=== PATIENT | male | born 1930 | race Caucasian/White ===

== ENCOUNTER 2018-05-12 14:56 | Outpatient (CLI) | payer MEDICARE, OTHER ==
--- NOTE | 2018-05-12 18:39 | Diagnostic Imaging Report ---
[facility] [address] [facility] [address] [place] [address]. [address] Report Submission Date: May 12, 2018 3:50:53 PM CDT Patient Study Name: LYUDMILA MARTINEZ Date: May 12, 2018 3:11:15 PM CDT Modality Type: CT\SR Gender: M Description: CT LEG W/O CONTRAST : 01/30/30 Institution: Physician: [facility] Computed tomography right hip without contrast History: Pain and decreased mobility Findings: Transverse right hip sections are obtained without contrast. Radiographs have not been provided. A large amount of rectosigmoid stool is noted. Surgical clips are present in the right groin. Osteopenia is observed. The right hip is otherwise normal without fracture, dislocation, arthropathy, or suspicious bone lesion. Impression: 1. Possible fecal impaction. 2. Osteopenia. 3. No evidence of fracture. Electronically signed on May 12, 2018 3:50:53 PM CDT by: Maximo COATES
== END 2018-05-12 15:02 ==
LOC: RAD 14:56
PROVIDERS: ATTEND Family Medicine
DX: M25.551 Pain in right hip (principal); W19.XXXA Unspecified fall, initial encounter; Y92.9 Unspecified place or not applicable; Y93.9 Activity, unspecified; Y99.9 Unspecified external cause status
CPT/HCPCS: 73700

== ENCOUNTER 2018-07-14 15:00 | Inpatient (IN) | payer MEDICARE, OTHER ==
--- NOTE | 2018-07-14 15:25 | ED Physician Documentation ---
General Adult - HISTORIAN Historian: patient - HPI Stated Complaint: change in LOC Chief Complaint: Altered Mental Status Onset: days ago (2) Timing: still present Severity: mild Further Comments: yes (per Skilled Nursing staff he has had change in his mental status and he was known to have a high white count yesterday no output in voiding today . No fever. Per staff he is usually awake and alert and has been sleeping more not eating and no drinking) - ROS CONST: recent illness (elevated WBC ) EYES/ENT: none CVS/RESP: none (no complaints noted ) MS/SKIN/LYMPH: denies: leg swelling, rash, swollen glands NEURO/PSYCH: denies: fainting, dizziness, difficulty walking - PAST HX Past History: hypertension (depression, dementia, aggression, ostopenia ), other Surgeries/Procedures: cardiac bypass Immunizations: referred to PCP Allergies/Adverse Reactions: Allergies Allergy/AdvReac Type Severity Reaction Status Date / Time iodine Allergy Verified 07/14/18 22:17 morphine Allergy Verified 07/14/18 22:17 Home Medications: Ambulatory Orders Medication Instructions Recorded Acetaminophen [Tylenol Arthritis] 1 tab PO TID 07/14/18 Aspirin [Jose] 1 tab PO DAILY 07/14/18 Cyproheptadine HCl [Periactin] 4 mg PO TID 07/14/18 Divalproex Sodium [Depakote] 2 tab PO BID 07/14/18 Docusate Sodium [Dulcolax Stool 1 tab PO BID 07/14/18 Softener] Donepezil HCl [Aricept] 1 tab PO DAILY 07/14/18 Furosemide [Lasix] 3 tab PO DAILY 07/14/18 Losartan Potassium [Cozaar] 12.5 mg PO DAILY 07/14/18 Medroxyprogesterone Acetate 1 tab PO DAILY 07/14/18 [Provera] Meloxicam 1 mg PO DAILY 07/14/18 Metoprolol Succinate [Toprol Xl] 12.5 mg PO DAILY 07/14/18 Mirtazapine [Remeron] 1 tab PO HS 07/14/18 Pantoprazole Sodium [Protonix] 1 tab PO DAILY 07/14/18 Polyethylene Glycol 3350 [Miralax] 1 packet PO DAILY 07/14/18 Risperidone [Risperdal] 1 tab PO TID 07/14/18 - SOCIAL HX Smoking History: non-smoker Alcohol Use: none Drug Use: none - FAMILY HX Family History: No - REVIEWED ASSESSMENTS Nursing Assessment Reviewed: Yes Vitals Reviewed: Yes Progress - Progress Progress: 1700: resting quietly in bed. Awaiting lab results DG 1730: Discussed case with Dr Ramirez will admit due to hypoxia, altered LOC, decreased urinary output and elevated WBC DG 1940: he asked for a blanket. States he knows he is at the hospital (not sure where) he states he has no pain. His lips are pink and dry. DG 2030: CT returned and case discussed with Dr Ramirez again. Will admit with blood transfusion x 1 unit for tonight DG ED Results Lab/Radiology - Radiology Radiology Impressions: Examination: CT head without contrast History: MENTAL STATUS CHANGES. PT UNABLE TO FOLLOW BREATHING INSTRUCTIONS (Hx) Comparison exam: None available Technique: Noncontrast head CT protocol. Findings: Ventricles and sulci are prominent. Cerebrocerebellar parenchyma demonstrates periventricular low attenuation consistent with small vessel disease. No evidence for parenchymal hemorrhage. No evidence for mass or mass effect. No midline shift. No extra axial fluid collections. Partial visualization of the paranasal sinuses, mastoid air cells, orbits, skull and scalp without gross irregularity. Streak artifact from dental hardware. Impression: Advanced age related changes. No acute parenchymal process. No he morrhage. Electronically signed on Jul 14, 2018 4:02:10 PM CDT by: Chang Davis Portable chest Clinical history: Elevated white cell count. Mental status changes. Findings: Examination of the chest in single portable AP view demonstrates the lungs to be hypoventilated with elevation left hemidiaphragm. There are discoid changes in the bases. Cardiac silhouette is prominent and the aorta is atherosclerotic. There are multiple sternotomy wires. Impression: 1. Hypoventilation and elevation of left hemidiaphragm. 2. Bibasilar atelectasis. 3. Aortic atherosclerosis and left ventricular prominence. 4. Postoperative chest. Electronically signed on Jul 14, 2018 4:19:33 PM CDT by: Edy Goode General Adult Physical Exam - PHYSICAL EXAM GENERAL APPEARANCE: no distress EENT: eye inspection normal, ENT inspection normal, MARIBELL NECK: normal inspection RESPIRATORY: no resp distress, chest non-tender, breath sounds normal CVS: reg rate & rhythm, heart sounds normal, equal pulses ABDOMEN: soft, normal bowel sounds, no distension, non-tender SKIN: warm/dry, normal color EXTREMITIES: non-tender, normal range of motion, no evidence of injury, no edema NEURO: other (he responds to questions but not appropriate ) Discharge Clincal Impression: Altered level of consciousness, Hypoxia Condition: Fair Disposition: ADMITTED INPATIENT Decision to Admit: [id number] Date of Decison to Admit: 07/14/18 Decision Time: 17:30
[2018-07-14] MEDS ORDERED: 0.9 % SODIUM CHLORIDE 1,000 ML IV ONE ×3 (15:26→18:55)
[2018-07-14 15:49] LABS: eGFR (Non-African) > 60
[2018-07-14 18:31] LABS: BASO % 0.4 % (0.0-1.5); EOS % 0.8 % (0.0-6.8); LYMPH ABS # 2.05 thou/uL (0.60-4.00); MCH. 29.3 pg (28.0-34.0); MCV 91.4 fL (80.0-100.0); MONOCYTE % 8.4 % (0.0-11.0); MONOCYTE ABS # 1.15 thou/uL (0.00-0.90); PLATELET COUNT 438 thou/uL (130-400)
--- NOTE | 2018-07-14 19:54 | Diagnostic Imaging Report ---
TENZIN HSIEH [facility] [address] [facility] [address] [place], [place]. [address] Report Submission Date: Jul 14, 2018 4:19:33 PM CDT Patient Study Name: LYUDMILA MARTINEZ Date: Jul 14, 2018 3:41:07 PM CDT Modality Type: DX Gender: M Description: CHEST : 01/30/30 Institution: [facility] Physician: TENZIN HSIEH Portable chest Clinical history: Elevated white cell count. Mental status changes. Findings: Examination of the chest in single portable AP view demonstrates the lungs to be hypoventilated with elevation left hemidiaphragm. There are discoid changes in the bases. Cardiac silhouette is prominent and the aorta is atherosclerotic. There are multiple sternotomy wires. Impression: 1. Hypoventilation and elevation of left hemidiaphragm. 2. Bibasilar atelectasis. 3. Aortic atherosclerosis and left ventricular prominence. 4. Postoperative chest. Electronically signed on Jul 14, 2018 4:19:33 PM CDT by: Edy COATES
--- NOTE | 2018-07-14 19:55 | Diagnostic Imaging Report ---
TENZIN HSIEH [facility] [address] [facility] [address] [place], [place]. [address] Report Submission Date: Jul 14, 2018 4:02:10 PM CDT Patient Study Name: LYUDMILA MARTINEZ Date: Jul 14, 2018 3:39:10 PM CDT Modality Type: CT Gender: M Description: CT BRAIN W/O CONTRAST : 01/30/30 Institution: [facility] Physician: TENZIN HSIEH Examination: CT head without contrast History: MENTAL STATUS CHANGES. PT UNABLE TO FOLLOW BREATHING INSTRUCTIONS (Hx) Comparison exam: None available Technique: Noncontrast head CT protocol. Findings: Ventricles and sulci are prominent. Cerebrocerebellar parenchyma demonstrates periventricular low attenuation consistent with small vessel disease. No evidence for parenchymal hemorrhage. No evidence for mass or mass effect. No midline shift. No extra axial fluid collections. Partial visualization of the paranasal sinuses, mastoid air cells, orbits, skull and scalp without gross irregularity. Streak artifact from dental hardware. Impression: Advanced age related changes. No acute parenchymal process. No hemorrhage. Electronically signed on Jul 14, 2018 4:02:10 PM CDT by: Chang COATES
--- NOTE | 2018-07-14 20:08 | Diagnostic Imaging Report ---
TENZIN HSIEH [facility] [address] [facility] [address] [place], [place]. [address] Report Submission Date: Jul 14, 2018 8:06:42 PM CDT Patient Study Name: LYUDMILA MARTINEZ Date: Jul 14, 2018 7:15:00 PM CDT Modality Type: CT Gender: M Description: CT CHEST/ABD/PEL : 01/30/30 Institution: [facility] Physician: TENZIN HSIEH CT of the chest angiography with IV contrast CT abdomen and pelvis with IV contrast Clinical history: Chest pain and anemia and low blood count No visible aortic dissection. No visible pulmonary embolus. Bibasilar atelectasis. No pneumothorax or significant effusion. Elevated left hemidiaphragm with a possible left diaphragmatic hernia. An old compression fracture of T12. Post cardiac surgery. Normal pancreas and adrenal glands. Multiple low density lesions in the liver. Multiple renal cysts. Heavily calcified abdominal aorta without significant size aneurysm. 3 mm stone in lower pole the right kidney without hydronephrosis. No visible retroperitoneal or abdominal hematomas. No free fluid in the abdomen or pelvis. Fecal impaction of the rectum with Pelayo catheter is in the bladder. Impression: No visible aortic dissection or pulmonary embolus Bibasilar atelectasis but significant effusion Left diaphragmatic hernia Multiple hepatic and renal cysts 3 mm nonobstructing stone right kidney Fecal impaction of the rectum No visible hematoma in the abdomen or pelvis An old compression fracture of T12 Electronically signed on Jul 14, 2018 8:06:42 PM CDT by: Charly COATES
--- NOTE | 2018-07-14 20:08 | Diagnostic Imaging Report ---
TENZIN HSIEH [facility] [address] [facility] [address] [place], [place]. [address] Report Submission Date: Jul 14, 2018 8:06:42 PM CDT Patient Study Name: LYUDMILA MARTINEZ Date: Jul 14, 2018 7:15:00 PM CDT Modality Type: CT Gender: M Description: CT CHEST/ABD/PEL : 01/30/30 Institution: [facility] Physician: TENZIN HSIEH CT of the chest angiography with IV contrast CT abdomen and pelvis with IV contrast Clinical history: Chest pain and anemia and low blood count No visible aortic dissection. No visible pulmonary embolus. Bibasilar atelectasis. No pneumothorax or significant effusion. Elevated left hemidiaphragm with a possible left diaphragmatic hernia. An old compression fracture of T12. Post cardiac surgery. Normal pancreas and adrenal glands. Multiple low density lesions in the liver. Multiple renal cysts. Heavily calcified abdominal aorta without significant size aneurysm. 3 mm stone in lower pole the right kidney without hydronephrosis. No visible retroperitoneal or abdominal hematomas. No free fluid in the abdomen or pelvis. Fecal impaction of the rectum with Pelayo catheter is in the bladder. Impression: No visible aortic dissection or pulmonary embolus Bibasilar atelectasis but significant effusion Left diaphragmatic hernia Multiple hepatic and renal cysts 3 mm nonobstructing stone right kidney Fecal impaction of the rectum No visible hematoma in the abdomen or pelvis An old compression fracture of T12 Electronically signed on Jul 14, 2018 8:06:42 PM CDT by: Charly COATES
[2018-07-14] MEDS ORDERED: cefTRIAXone SODIUM 1 GM VIAL ONE (20:42)
[2018-07-14] MEDS ORDERED: MAGNESIUM CITRATE 296 ML BOTTLE PO ONE (20:47)
[2018-07-14] MEDS ORDERED: ENOXAPARIN SODIUM 40 MG/0.4 ML DISP.SYRIN SQ SCH (21:00)
[2018-07-14] MEDS ORDERED: cefTRIAXone SODIUM 1 GM in 0.9 % SODIUM CHLORIDE 50 ML IV SCH ×4 (21:00)
[2018-07-14] MEDS: DONEPEZIL HCL 5 MG TABLET PO SCH (21:40)
[2018-07-14] MEDS: VALPROIC ACID (AS SODIUM SALT) 250 MG/5 ML BOTTLE PO SCH (21:40)
[2018-07-14] MEDS: 0.9 % SODIUM CHLORIDE 1,000 ML IV SCH (21:41)
[2018-07-14] MEDS: risperiDONE 0.5 MG TABLET PO SCH (21:45)
[2018-07-14 23:23] VITALS: BMI 23.0
[2018-07-15] MEDS ORDERED: 0.9 % SODIUM CHLORIDE 100 ML IV ONE (01:42)
[2018-07-15 04:26] LABS: APPEARANCE,URINE CLEAR (CLEAR); COLOR,URINE AMBER (YELLOW); OCCULT BLOOD,URINE NEGATIVE (NEGATIVE)
[2018-07-15] MEDS: PANTOPRAZOLE SODIUM 40 MG TABLET PO SCH (06:03)
[2018-07-15 08:07] LABS: eGFR (Non-African) > 60
[2018-07-15] MEDS: 0.9 % SODIUM CHLORIDE 1,000 ML IV SCH ×4 (08:21→19:37)
[2018-07-15] MEDS ORDERED: METOPROLOL SUCCINATE 50 MG TAB.ER.24H PO SCH (09:00)
[2018-07-15] MEDS: LOSARTAN POTASSIUM 50 MG TABLET PO SCH (09:04)
[2018-07-15] MEDS: VALPROIC ACID (AS SODIUM SALT) 250 MG/5 ML BOTTLE PO SCH (09:05)
[2018-07-15] MEDS: risperiDONE 0.5 MG TABLET PO SCH ×3 (09:06→17:58)
--- NOTE | 2018-07-15 09:10 | History and Physical Report ---
History of Present Illnes - History of Present Illness Reason for Visit: increase mentla status changes History of Present Illness: Patient is and 88-year-old white male who is a resident of [facility]. Patient has a history of dementia which makes getting a history difficult. Nursing staff at [facility] report that the patient has been more confused than his baseline dementia and less active.Patient has lab work drawn on the day prior to admission was noted have an elevated WBC count. Patient was felt to possibly have a pulmonary infection and was started on something 250 mg BID for seven days. However patient mental status continue to the. Patient was transferred to the ED for further evaluation and treatment. In the ED patient did have a CT scan of the head which did show age-related changes. A repeat CBC did show WBC count 13,600 which was down from 17,000 the day before. However patient hemoglobin had dropped to 7.3 from 9.0. Patient with not reported to have had any hematemesis, melena or hematochezia. Patient did have an elevated d-dimer. CT scan of the chest did not show any evidence of any pulmonary nebulization. Patient did require supplemental oxygen at 3 L per nasal cannula. This is something new for the patient. CT scan of the abdomen was unremarkable for any acute process. Because of the patient dramatic decrease in his hemoglobin and increasing mental status patient was subsequently admitted to the hospital for further care and evaluation. - Past Medical History Cardiac: CAD, CHF, HTN, NC (previous), Hyperlipidemia DIRECTOR OF PUBLIC WORKS: Dementia Gastrointestinal: Constipation Heme/Onc: Anemia NOS, Other (hypoalbuminia) - Past Surgical History Past Surgical History: CABG, Other (aortofemoral bypass bilaterally) - Past Family History Mother Family History: (unknown) Father Family History: (unknown) - Past Social History Smoke: No Occupation: retired ruiz Alcohol: None Drugs: None Lives: Intermediate ([place]) Domestic Violence: Negative - Health Maintenance Health Maintenance: denies: Pneumococcal Vaccine (unknown) Influenza Vaccine: No Pneumonia Vaccine: No Resuscitation Status: Resusciation Status Resuscitation Status Full Code - Unable to Obtain History Unable to Obtain: Yes (confused, answers are not consistent) Review of Systems - Review of Systems Constitutional: Fever. negative: Chills, Weakness Eyes: Deferred ENT: Deferred Respiratory: Cough, Shortness of Breath, SOB with Excertion Cardiovascular: negative: Chest Pain Gastrointestinal: Constipation. negative: Nausea, Vomiting, Abdominal Pain, Diarrhea, Melena, Hematochezia Genitourinary: Incontinence. negative: Dysuria, Frequency Musculoskeletal: Deferred Skin: negative: Rash Neurological: Weakness, Confusion. negative: Change in Speech - Medications/Allergies Allergies/Adverse Reactions: Allergies Allergy/AdvReac Type Severity Reaction Status Date / Time iodine Allergy Verified 07/14/18 22:17 morphine Allergy Verified 07/14/18 22:17 Home Medications: Home Medications Acetaminophen [Tylenol Arthritis] 1 tab PO TID 07/14/18 Aspirin [Jose] 1 tab PO DAILY 07/14/18 Cyproheptadine HCl [Periactin] 4 mg PO TID 07/14/18 Divalproex Sodium [Depakote] 2 tab PO BID 07/14/18 Docusate Sodium [Dulcolax Stool Softener] 1 tab PO BID 07/14/18 Donepezil HCl [Aricept] 1 tab PO DAILY 07/14/18 Furosemide [Lasix] 3 tab PO DAILY 07/14/18 Losartan Potassium [Cozaar] 12.5 mg PO DAILY 07/14/18 Medroxyprogesterone Acetate [Provera] 1 tab PO DAILY 07/14/18 Meloxicam 1 mg PO DAILY 07/14/18 Metoprolol Succinate [Toprol Xl] 12.5 mg PO DAILY 07/14/18 Mirtazapine [Remeron] 1 tab PO HS 07/14/18 Pantoprazole Sodium [Protonix] 1 tab PO DAILY 07/14/18 Polyethylene Glycol 3350 [Miralax] 1 packet PO DAILY 07/14/18 Risperidone [Risperdal] 1 tab PO TID 07/14/18 Current Inpatient Medications: Current Inpatient Medications Docusate Sodium (Colace) mg PO BID CONNIE Donepezil HCl (Aricept) 10 mg PO HS [facility] Last Admin: 07/14/18 21:40 Dose: 10 mg Enoxaparin Sodium (Lovenox) 40 mg SQ QD CONNIE Stop: 07/28/18 20:59 Last Admin: 07/14/18 21:42 Dose: 40 mg Ceftriaxone Sodium 1 gm/ (Sodium Chloride) 50 mls @ 100 mls/hr IV Q24H CONNIE Last Admin: 07/14/18 20:48 Dose: 100 mls/hr Sodium Chloride (Normal Saline) 1,000 mls @ 100 mls/hr IV Q10H [facility] Last Admin: 07/15/18 08:21 Dose: 100 mls/hr Losartan Potassium (Cozaar) 12.5 mg PO DAILY [facility] Magnesium Citrate (Citrate Of Magnesia) 296 ml PO NOW ONE Stop: 07/14/18 20:48 Last Admin: 07/14/18 21:42 Dose: 150 ml Metoprolol Succinate (Toprol Xl) 12.5 mg PO DAILY [facility] Mirtazapine (Remeron) 15 mg PO HS [facility] Pantoprazole Sodium (Protonix) 20 mg PO 0700 [facility] Last Admin: 07/15/18 06:03 Dose: 20 mg Polyethylene Glycol (Miralax) gm PO DAILY [facility] Risperidone (Risperdal) 0.25 mg PO TID [facility] Last Admin: 07/14/18 21:45 Dose: 0.25 mg Exam - Exam Vital Signs: Vital Signs (72 hours) 07/14/18 07/14/18 07/14/18 15:00 20:31 21:00 Temperature 97.6 F 97 F L Pulse Rate [ 60 60 Left Pulse ox] Respiratory 17 18 Rate Blood Pressure 83/38 109/48 [Right Arm] O2 Sat by Pulse 85 L 100 92 Oximetry 07/14/18 07/14/18 07/15/18 21:33 22:00 00:31 Temperature 97 F L Pulse Rate [ 60 60 Left Pulse ox] Respiratory 14 14 Rate Blood Pressure 96/43 96/43 [Right Arm] O2 Sat by Pulse 96 96 94 Oximetry 07/15/18 07/15/18 07/15/18 01:00 02:00 03:40 Temperature 97.7 F 97.7 F Pulse Rate [ 60 66 73 Left Pulse ox] Respiratory 18 18 16 Rate Blood Pressure 99/41 98/50 [Right Arm] O2 Sat by Pulse 94 93 Oximetry 07/15/18 07/15/18 07/15/18 04:00 04:15 05:00 Temperature 97.8 F 97.8 F Pulse Rate [ 71 70 70 Left Pulse ox] Respiratory 18 18 18 Rate Blood Pressure 99/48 102/47 [Right Arm] O2 Sat by Pulse 92 92 Oximetry 07/15/18 07/15/18 05:45 06:31 Temperature 98 F 98.2 F Pulse Rate [ 67 66 Left Pulse ox] Respiratory 18 18 Rate Blood Pressure 109/53 100/51 [Right Arm] O2 Sat by Pulse 92 92 Oximetry General: Alert, Oriented to Person, Cooperative, Mild distress. No: Oriented to Place, Oriented to Time HEENT: Atraumatic, PERRLA, EOMI, Mouth Mucous membr. moist/[place], Nose Mucous membr. moist/[place] Neck: Normal Range of Motion Carotids: WNL Thyroid: WNL Lungs: Clear to auscultation, Normal air movement, Speaks full Sentences, Rhonchi (few scattered bialterally) Cardiovascular: Regular rate, Normal S1, Normal S2, No murmurs Abdomen: Normal bowel sounds, Soft, No hepatospenomegaly, No masses, Other (mild diffuse tenderness) Integumentary: Normal, [place], Warm, Dry Extremities: No cyanosis, No edema, Normal pulses, No tenderness/swelling Neurological: Normal speech, Strength Equal Bilat, Normal tone, Sensation intact, Cranial nerves 3-12 NL, Reflexes 2+ Psych/Mental Status: Appropriate Affect. No: Mental status NL (more confused then baseline according to nursing staff), Mood NL (irritable), Intact Judgment - Laboratory Results Laboratory Results: Laboratory Results 07/14/18 07/14/18 07/14/18 18:00 19:00 Unknown WBC Comment RBC Hemoglobin (Send Out) Hct (Send Out) MCV (Send Out) MCH MCHC (Send Out) RDW Coeff of Марина Plt Count Absolute Lymphs (auto) Absolute Monos (auto) Absolute Basos (auto) Neutrophils % Absolute Neutrophils Lymphocytes Monocytes Absolute Eosinophils Basophilia % Eosinophil Count D-Dimer 1799 H Sodium 133 L Potassium 3.6 Chloride 111 H Carbon Dioxide 29 BUN 22 H Creatinine 0.70 Estimated Creat Clear 79 Est GFR ( Amer) > 60 Est GFR (Non-Af Amer) > 60 Glucose 107 H Calcium 7.2 L Total Bilirubin 0.1 L AST 8 L ALT 23 Alkaline Phosphatase 56 Troponin I < 0.03 L Total Protein 4.8 L Albumin 2.2 L Urine Color Urine Appearance Urine pH Ur Specific [place] Urine Protein Urine Ketones Urine Occult Blood Urine Nitrite Urine Bilirubin Urine Urobilinogen Ur Leukocyte Esterase Urine Glucose 07/14/18 07/14/18 07/15/18 Unknown Unknown 07:41 WBC Comment 13.68 H RBC 2.49 L Hemoglobin (Send Out) 7.3 L Hct (Send Out) 22.8 L MCV (Send Out) 91.4 MCH 29.3 MCHC (Send Out) 32.1 RDW Coeff of Марина 15.1 H Plt Count 438 H Absolute Lymphs (auto) 2.05 Absolute Monos (auto) 1.15 H Absolute Basos (auto) 0.05 Neutrophils % 75.3 Absolute Neutrophils 10.30 H Lymphocytes 15.0 L Monocytes 8.4 Absolute Eosinophils 0.11 Basophilia % 0.4 Eosinophil Count 0.8 D-Dimer Sodium 131 L Potassium 3.9 Chloride 116 H Carbon Dioxide 24 BUN 15 Creatinine 0.50 L Estimated Creat Clear 111 Est GFR ( Amer) > 60 Est GFR (Non-Af Amer) > 60 Glucose 74 Calcium 7.1 L Total Bilirubin 0.3 AST 17 ALT 19 Alkaline Phosphatase 61 Troponin I Total Protein 4.7 L Albumin 2.1 L Urine Color [place] Urine Appearance Clear Urine pH 7.0 Ur Specific [place] 1.020 Urine Protein Trace Urine Ketones Trace H Urine Occult Blood Negative Urine Nitrite Negative Urine Bilirubin 1+ H Urine Urobilinogen 4.0 H Ur Leukocyte Esterase Negative Urine Glucose Negative Assessment/Plan - Assessment/Plan (1) Anemia Status: Chronic Current Visit: Yes Qualifiers: Anemia type: other cause Other causes of anemia: chronic disease, other Qualified Code(s): D63.8 - Anemia in other chronic diseases classified elsewhere Assessment: Because of sudden drop in Hgb/Hct with mental confusion will transfuse one unit of PRBC (2) CHF (congestive heart failure) Status: Chronic Current Visit: Yes (3) CAD (coronary artery disease) Status: Acute Current Visit: Yes Qualifiers: Coronary Disease-Associated Artery/Lesion type: [place] artery [place] vs. transplanted heart: [place] heart Associated angina: without angina Qualified Code(s): I25.10 - Atherosclerotic heart disease of [place] coronary artery without angina pectoris Assessment: will watch for developing sympotms (4) Alzheimer's dementia Status: Chronic Current Visit: Yes Qualifiers: Alzheimer's disease onset: late-onset Dementia behavioral disturbance: without behavioral disturbance Qualified Code(s): G30.1 - Alzheimer's disease with late onset; F02.80 - Dementia in other diseases classified elsewhere without behavioral disturbance Assessment: monitor mental status changes (5) Altered level of consciousness Status: Acute Current Visit: Yes Assessment: will monitor (6) Hypoxia Status: Acute Current Visit: Yes Assessment: supplemental oxygen, will continue ceftin for possible bronchitis. VTE Assessment - RISK FACTOR SCORE VTE RISK FACTOR SCORES: AGE OVER 60 YEARS, ANTICIPATED BED CONFINEMENT OR IMMOBILIZATION > 24 HOURS - RISK VTE MODERATE RISK: SCORE OF 2 (RISK PROXIMAL DVT 2-4%) PROPHYAXIS NEEDED (will hold off on anticoagulation until establish no GI bleeding and H/H remain stable.)
[2018-07-15] MEDS: DOCUSATE SODIUM 100 MG CAPSULE PO SCH ×3 (09:42→20:09)
[2018-07-15] MEDS: [UNRECOGNIZED DRUG - OTHER] PO SCH ×3 (10:45→20:11)
[2018-07-15] MEDS: VALPROIC ACID 250 MG/5 ML PO SCH ×3 (10:45→20:11)
[2018-07-15] MEDS ORDERED: VALPROIC ACID (AS SODIUM SALT) 250 MG/5 ML BOTTLE PO ONE ×2 (12:17→22:27)
[2018-07-15] MEDS: POLYETHYLENE GLYCOL 3350 17 GM POWD.PACK PO SCH (13:17)
[2018-07-15] MEDS: Non-Formulary 1 EACH PO SCH (17:24)
[2018-07-15 18:02] LABS: BASO % 0.6 % (0.0-1.5); EOS % 2.1 % (0.0-6.8); LYMPH ABS # 2.17 thou/uL (0.60-4.00); MCH. 29.9 pg (28.0-34.0); MCV 90.1 fL (80.0-100.0); MONOCYTE % 10.4 % (0.0-11.0); MONOCYTE ABS # 1.19 thou/uL (0.00-0.90); PLATELET COUNT 420 thou/uL (130-400)
[2018-07-15] MEDS: MIRTAZAPINE 15 MG TABLET PO SCH ×2 (19:40→20:08)
[2018-07-15] MEDS ORDERED: cefTRIAXone SODIUM 1 GM VIAL ONE (20:00)
[2018-07-15] MEDS: DONEPEZIL HCL 5 MG TABLET PO SCH (20:09)
[2018-07-15] MEDS ORDERED: cefTRIAXone SODIUM 1 GM in 0.9 % SODIUM CHLORIDE 100 ML IV SCH (21:00)
[2018-07-16] MEDS: PANTOPRAZOLE SODIUM 40 MG TABLET PO SCH (06:04)
[2018-07-16] MEDS: 0.9 % SODIUM CHLORIDE 1,000 ML IV SCH (06:06)
[2018-07-16] MEDS: VALPROIC ACID 250 MG/5 ML PO SCH (08:46)
[2018-07-16] MEDS: [UNRECOGNIZED DRUG - OTHER] PO SCH (08:46)
[2018-07-16] MEDS: DOCUSATE SODIUM 100 MG CAPSULE PO SCH (08:46)
[2018-07-16] MEDS: risperiDONE 0.5 MG TABLET PO SCH ×3 (08:46→14:42)
[2018-07-16] MEDS: LOSARTAN POTASSIUM 50 MG TABLET PO SCH (08:47)
[2018-07-16] MEDS: Non-Formulary 1 EACH PO SCH (08:47)
[2018-07-16] MEDS: POLYETHYLENE GLYCOL 3350 17 GM POWD.PACK PO SCH (08:47)
[2018-07-16] MEDS ORDERED: VALPROIC ACID (AS SODIUM SALT) 250 MG/5 ML BOTTLE PO ONE (11:22)
[2018-07-16] MEDS ORDERED: 0.9 % SODIUM CHLORIDE 0 ML IV ONE (11:23)
[2018-07-16] MEDS ORDERED: cefTRIAXone SODIUM 1 GM VIAL ONE (11:23)
--- NOTE | 2018-07-16 12:04 | Discharge Summary ---
Discharge Summary - Discharge Sumary History of Present Illness: Mr. Gonzalez is an 88 year old male that was brought to the hospital from [facility] after they noted he was having decreased urinary output and was more confused that usual. In the ER he was found to have a a Hgb of 7.3. He was admitted to the hospital and was transfused one unit of RBCs. His repeat HGB was 8.9. ED preformed by Dr. Ramirez was Guaiac negative. The patient was also found to be constipated. Speaking with the patient this morning he states he is feeling much better and denies any pain. Patient has advanced dementia at baseline and is generally a poor historian. He was a little combative with nursing staff last night when they were trying to reposition him, but has been mostly cooperative so far this morning. He states he is not hungry and has had generally a poor appetite throughout his stay which appears to be b aseline for him. His urine output has increased significantly since his arrival. Catheter has been removed. He was found to be pulling at his catheter prior to it being removed, and his first void since removal did have some blood present. Patient will be discharged back to [facility] to Dr. Argueta. General: Thin, alert and responsive 88 year old male. Skin: Small skin tear on coccyx reported by nursing staff though patient will not allow for exam at this time. HEENT: Conjunctiva clear, ears clear, mouth and throat clear Resp: Clear to auscultation, speaks in full sentences Cardio:Holosystolic murmur, regular rate, normal sinus rhythm on monitor Abdominal:Soft, non-tender, with good bowel sounds Extremities:No swelling to bilateral lower extremities noted on exam Condition at Discharge: Stable Home Medications: Ambulatory Orders Medication Instructions Recorded Acetaminophen [Tylenol Arthritis] 1 tab PO TID 07/14/18 Aspirin [Jose] 1 tab PO DAILY 07/14/18 Cyproheptadine HCl [Periactin] 4 mg PO TID 07/14/18 Divalproex Sodium [Depakote] 2 tab PO BID 07/14/18 Docusate Sodium [Dulcolax Stool 1 tab PO BID 07/14/18 Softener] Donepezil HCl [Aricept] 1 tab PO DAILY 07/14/18 Furosemide [Lasix] 3 tab PO DAILY 07/14/18 Losartan Potassium [Cozaar] 12.5 mg PO DAILY 07/14/18 Medroxyprogesterone Acetate 1 tab PO DAILY 07/14/18 [Provera] Meloxicam 1 mg PO DAILY 07/14/18 Metoprolol Succinate [Toprol Xl] 12.5 mg PO DAILY 07/14/18 Mirtazapine [Remeron] 1 tab PO HS 07/14/18 Pantoprazole Sodium [Protonix] 1 tab PO DAILY 07/14/18 Polyethylene Glycol 3350 [Miralax] 1 packet PO DAILY 07/14/18 Risperidone [Risperdal] 1 tab PO TID 07/14/18 Consultations this Visit: None Procedures this Visit: Transfusion (1 unit Packed RBCs) Allergies/Adverse Reactions: Allergies Allergy/AdvReac Type Severity Reaction Status Date / Time iodine Allergy Verified 07/14/18 22:17 morphine Allergy Verified 07/14/18 22:17 Patient Problems: Current Active Problems Problem Status Onset Altered level of consciousness Acute CAD (coronary artery disease) Acute Constipation Acute Hypoxia Acute Alzheimer's dementia Chronic Anemia Chronic CHF (congestive heart failure) Chronic - Final Diagnosis (1) Anemia Problems: Orders given to recheck CBC on 07/21/2018. Orders given for hemoccult testing for next 3 stools. Monitor blood in urine to ensure it resolves as it is likely due to trauma from catheter. (2) Constipation Problems: Patient has had BMs since arrival, has good bowel sounds. Abdomen is not tender or extended at time of discharge. (3) Altered level of consciousness Problems: History of advanced dementia. Patient is alert and does respond appropriately to questions though memory is obviously impaired.
[2018-07-16 18:35] VITALS: BP 118/58
[2018-07-16 19:41] LABS: BASO % 0.3 % (0.0-1.5); EOS % 2.1 % (0.0-6.8); LYMPH ABS # 2.12 thou/uL (0.60-4.00); MCH. 29.8 pg (28.0-34.0); MCV 93.2 fL (80.0-100.0); MONOCYTE % 12.4 % (0.0-11.0); MONOCYTE ABS # 1.27 thou/uL (0.00-0.90); PLATELET COUNT 409 thou/uL (130-400)
== END 2018-07-16 18:20 | DRG 812 ==
LOC: ED 15:00 → SOUTH 20:22
PROVIDERS: ADMIT Family Medicine; ATTEND Family Medicine
DX: D64.9 Anemia, unspecified (principal); I25.810 Atherosclerosis of coronary artery bypass graft(s) without angina pectoris; F03.90 Unspecified dementia, unspecified severity, without behavioral disturbance, psychotic disturbance, mood disturbance, and anxiety; G30.1 Alzheimer's disease with late onset; R09.02 Hypoxemia; I50.9 Heart failure, unspecified; I10 Essential (primary) hypertension; Z95.1 Presence of aortocoronary bypass graft; M85.80 Other specified disorders of bone density and structure, unspecified site; I25.2 Old myocardial infarction; R32 Unspecified urinary incontinence; K59.00 Constipation, unspecified
CPT/HCPCS: 51702; 70450; 71045; 71260; 74177; 80053; 81002; 84484; 85025; 85379; 87040; 93005; J0696; J1650; J7030; 82270; 96365

== ENCOUNTER 2018-07-29 16:04 | Emergency (ER) | payer MEDICARE, OTHER ==
--- NOTE | 2018-07-29 16:34 | ED Physician Documentation ---
General Adult - HISTORIAN Historian: paramedics - HPI Stated Complaint: fall, eyebrow laceration Chief Complaint: General Adult Onset: minutes Timing: still present Severity: moderate Further Comments: yes (Pt is an 88 yo male [facility] pt with advanced dementia who sustained a laceration to his R eyebrow and bruising to his R cheek when he fell as nursing personell were trying walk him to the bathroom. Nursing staff was unable to get pt up until EMT's arrived. Pt denies neck pain but with dementia is inattentive to any but simple questions. Tetanus status unknown.) - ROS CONST: other (Pt unable to give ROS.) - PAST HX Past History: other (CAD, CHF, HTN, AK, HLD, advanced dementia, anemia) Surgeries/Procedures: cardiac bypass, other (aorta-femoral bypass b/l.) Allergies/Adverse Reactions: Allergies Allergy/AdvReac Type Severity Reaction Status Date / Time iodine Allergy Verified 07/29/18 16:31 morphine Allergy Verified 07/29/18 16:31 Home Medications: Ambulatory Orders Medication Instructions Recorded Acetaminophen [Tylenol Arthritis] 1 tab PO TID 07/14/18 Aspirin [Jose] 1 tab PO DAILY 07/14/18 Cyproheptadine HCl [Periactin] 4 mg PO TID 07/14/18 Divalproex Sodium [Depakote] 1 tab PO BID 07/14/18 Docusate Sodium [Dulcolax Stool 1 tab PO BID 07/14/18 Softener] Donepezil HCl [Aricept] 1 tab PO DAILY 07/14/18 Furosemide [Lasix] 3 tab PO DAILY 07/14/18 Losartan Potassium [Cozaar] 25 mg PO DAILY 07/14/18 Medroxyprogesterone Acetate 1 tab PO DAILY 07/14/18 [Provera] Meloxicam 1 mg PO DAILY 07/14/18 Metoprolol Succinate [Toprol Xl] 12.5 mg PO DAILY 07/14/18 Mirtazapine [Remeron] 1 tab PO HS 07/14/18 Pantoprazole Sodium [Protonix] 1 tab PO DAILY 07/14/18 Polyethylene Glycol 3350 [Miralax] 1 packet PO DAILY 07/14/18 Risperidone [Risperdal] 1 tab PO TID 07/14/18 Cholecalciferol (Vitamin D3) 2,000 unit PO DAILY 07/29/18 [Vitamin D3] Ferrous Sulfate [Iron] 325 mg PO DAILY 07/29/18 Melatonin 3 mg PO HS 07/29/18 - SOCIAL HX Smoking History: non-smoker - FAMILY HX Family History: No - VITAL SIGNS Vital Signs: Vital Signs Temp Pulse Resp BP Pulse Ox 97.1 F L 104 H 18 119/64 07/29/18 16:04 07/29/18 16:04 07/29/18 16:04 07/29/18 16:04 - REVIEWED ASSESSMENTS Nursing Assessment Reviewed: Yes Vitals Reviewed: Yes Procedures Wound Location: face (R eyebrow 2.5 cm linear laceration, edges well approximated) Wound Length: 2.5 cm Wound's Depth, Shape: superficial, linear Wound Explored: clean Irrigated w/ Saline (ccs): 15 Betadine Prep?: No (Hibiclens) Wound Debrided: minimal Wound Repaired With: steri-strips, Dermabond Layer Closure?: No Sterile Dressing Applied?: Yes Progress - Progress Progress: Tdap 0.5 ml IM General Adult Physical Exam - PHYSICAL EXAM GENERAL APPEARANCE: mild distress EENT: eye inspection normal, pharynx normal NECK: normal inspection, supple RESPIRATORY: no resp distress, chest non-tender, breath sounds normal CVS: reg rate & rhythm, heart sounds normal ABDOMEN: soft, no organomegaly, normal bowel sounds BACK: normal inspection, no CVA tenderness SKIN: other (laceration R eyebrow 2.5 cm, edges well approximated; ecchymosis R cheek) EXTREMITIES: non-tender, no evidence of injury, other (baseline) NEURO: motor nml, sensation nml, other (advanced dementia, baseline mental status) Discharge Clincal Impression: L eyebrow laceration Alzheimer's dementia Qualifiers: Alzheimer's disease onset: unspecified onset Dementia behavioral disturbance: with behavioral disturbance Qualified Code(s): G30.9 - Alzheimer's disease, unspecified; F02.81 - Dementia in other diseases classified elsewhere with behavioral disturbance Referrals: Gideon Argueta MD [Primary Care Provider] - Condition: Stable Disposition: 04 [facility] Decision to Admit: NO Decision Time: 17:09
[2018-07-29] MEDS ORDERED: DIPH,PERTUSS(ACELL),TET VAC/PF 0.5 ML DISP.SYRIN IM ONE (16:47)
[2018-07-29 18:52] VITALS: BP 103/58
== END 2018-07-29 18:40 ==
LOC: ED 16:04
DX: S01.81XA Laceration without foreign body of other part of head, initial encounter (principal); W19.XXXA Unspecified fall, initial encounter; Y92.129 Unspecified place in nursing home as the place of occurrence of the external cause; Y93.9 Activity, unspecified; Y99.9 Unspecified external cause status; G30.9 Alzheimer's disease, unspecified; F02.81 Dementia in other diseases classified elsewhere, unspecified severity, with behavioral disturbance
CPT/HCPCS: 12011; 90471; 90715